=== PATIENT | female | born 1940 | race Two or more races ===

== ENCOUNTER 2021-07-22 10:13 | Outpatient (CLI) | payer OTHER | END 2021-07-22 10:15 | disposition home or self-care (01) | LOC: TOM 10:13 | PROVIDERS: ATTEND Internal Medicine | DX: E21.0 Primary hyperparathyroidism (principal) | CPT/HCPCS: 70492; Q9965 ==

== ENCOUNTER 2024-03-14 13:12 | Outpatient (CLI) | payer OTHER | END 2024-03-14 13:15 | disposition home or self-care (01) | LOC: SONOGRAMA 13:12 | PROVIDERS: ATTEND Pathology Anatomic Pathology & Clinical Pathology | DX: D34 Benign neoplasm of thyroid gland (principal); E07.89 Other specified disorders of thyroid; E04.1 Nontoxic single thyroid nodule ==

== ENCOUNTER 2024-09-25 11:18 | Emergency (ER) | payer OTHER ==
[~2024-09-25] VITALS: Ht 152.4 cm; Wt 47.6 kg
[2024-09-25] MEDS ORDERED: ATACAND32 MG (11:49)
[2024-09-25] MEDS ORDERED: CRESTOR40 MG (11:51)
== END 2024-09-25 15:12 | disposition home or self-care (01) ==
LOC: ER 11:21
DX: R31.9 Hematuria, unspecified (principal); N28.1 Cyst of kidney, acquired; K76.89 Other specified diseases of liver